=== PATIENT | male | born 1960 | race Two or more races ===

== ENCOUNTER 2017-12-24 05:45 | Day surgery (SDC) | payer OTHER ==
[~2017-12-24 05:45] MED LIST: ATACAND HCT 321 EACH PO; SYNTHROID125 MCG PO; ZOCOR20 MG PO
== END 2017-12-24 13:55 | disposition home or self-care (01) ==
LOC: CIR.AMB 05:45
DX: C20 Malignant neoplasm of rectum (principal)
CPT/HCPCS: 36561; C1751

== ENCOUNTER 2018-05-19 12:00 | Inpatient (IN) | payer OTHER ==
[~2018-05-19] VITALS: Ht 182.9 cm; Wt 108.9 kg
== END 2018-05-29 18:42 | disposition home or self-care (01) | DRG 331 ==
LOC: SURH 05-26 07:00 → O/R 05-26 07:26 → SURH 05-26 12:00
PROVIDERS: ADMIT Colon & Rectal Surgery
PROC: 0D1B4Z4 Bypass Ileum to Cutaneous, Percutaneous Endoscopic Approach (ICD-10-PCS; 2018-05-26)
PROC: 07TC4ZZ Resection of Pelvis Lymphatic, Percutaneous Endoscopic Approach (ICD-10-PCS; 2018-05-26)
PROC: 0DJD8ZZ Inspection of Lower Intestinal Tract, Via Natural or Artificial Opening Endoscopic (ICD-10-PCS; 2018-05-26)
PROC: 0DTP4ZZ Resection of Rectum, Percutaneous Endoscopic Approach (ICD-10-PCS; principal; 2018-05-26 07:00)
PROC: 4A12X4Z Monitoring of Cardiac Electrical Activity, External Approach (ICD-10-PCS; 2018-05-27)
DX: C20 Malignant neoplasm of rectum (principal); I11.9 Hypertensive heart disease without heart failure; E03.8 Other specified hypothyroidism; E78.00 Pure hypercholesterolemia, unspecified; G47.33 Obstructive sleep apnea (adult) (pediatric); Z92.21 Personal history of antineoplastic chemotherapy

== ENCOUNTER 2018-09-16 09:15 | Inpatient (IN) | payer OTHER ==
[~2018-09-16] VITALS: Ht 182.9 cm; Wt 106.6 kg
== END 2018-09-25 17:44 | disposition home or self-care (01) | DRG 330 ==
LOC: SURH 09-23 07:00 → O/R 09-23 11:00 → SURH 09-23 11:00
PROVIDERS: ADMIT Colon & Rectal Surgery
PROC: 0DQB4ZZ Repair Ileum, Percutaneous Endoscopic Approach (ICD-10-PCS; principal; 2018-09-23 07:00)
DX: Z43.2 Encounter for attention to ileostomy (principal); C20 Malignant neoplasm of rectum; E03.8 Other specified hypothyroidism; I11.9 Hypertensive heart disease without heart failure; G47.33 Obstructive sleep apnea (adult) (pediatric); E78.00 Pure hypercholesterolemia, unspecified; R73.01 Impaired fasting glucose

== ENCOUNTER 2019-08-06 06:30 | Day surgery (SDC) | payer OTHER | END 2019-08-06 09:55 | disposition home or self-care (01) | LOC: AMB-ENDOS 06:30 | DX: C20 Malignant neoplasm of rectum (principal) ==

== ENCOUNTER 2020-07-21 07:09 | Day surgery (SDC) | payer OTHER | END 2020-07-21 12:00 | disposition home or self-care (01) | LOC: AMB-ENDOS 07:09 | PROVIDERS: ATTEND Colon & Rectal Surgery | DX: K62.89 Other specified diseases of anus and rectum (principal); Z20.822 Contact with and (suspected) exposure to COVID-19 ==

== ENCOUNTER 2022-06-12 05:42 | Day surgery (SDC) | payer OTHER | END 2022-06-12 10:15 | disposition home or self-care (01) | LOC: CIR.AMB 05:42 | PROVIDERS: ATTEND Colon & Rectal Surgery | DX: C18.9 Malignant neoplasm of colon, unspecified (principal); Z20.822 Contact with and (suspected) exposure to COVID-19; I10 Essential (primary) hypertension; E03.9 Hypothyroidism, unspecified ==